=== PATIENT | male | born 1950 | race Two or more races ===

== ENCOUNTER 2020-02-24 15:10 | Inpatient (IN) | payer OTHER, MEDICARE ==
[~2020-02-24] VITALS: Ht 177.8 cm; Wt 104.7 kg
[2020-02-24 00:55] VITALS: BP 125/72
[2020-02-24] MEDS ORDERED: SODIUM CHLORIDE 0.9% 1,000 ML IVB ONE (15:30)
[2020-02-24] MEDS ORDERED: ASPirin 81 mg TAB PO ONE ×2 (15:30)
[2020-02-24] MEDS ORDERED: fentaNYL CITRATE 100 MCG/2 ML VL IV ONE (15:30)
[2020-02-24] MEDS ORDERED: SODIUM CHL 0.9% IV ONE (15:45)
[2020-02-24] MEDS ORDERED: PROCAINAMIDE IV ONE (15:45)
[2020-02-24 15:58] LABS: Basophils # (auto) 0.1 10 ^3/uL (0-0.2); Eosinophils # (auto) 0.3 10 ^3/uL (0-0.8); Eosinophils % (auto) 2.2 % (0.0-7.0); Neutrophils # (auto) 9.4 10 ^3/uL (1.6-8.6); White Blood Cell 14.1 10^3/uL (4.4-10.8)
[2020-02-24] MEDS ORDERED: AMIODARONE HCL (50 MG/ ML) 3 ML VIAL IV ONE (15:58)
[2020-02-24 16:00] LABS: Hemoglobin 17.8 g/dL (13.5-17.5); Lymphocytes # (auto) 2.7 10 ^3/uL (0.4-5.4); Lymphocytes % (auto) 19.2 % (10.0-50.0); Mean Corpuscular Hemoglobin 32.5 pg (28.0-32.0); Mean Corpuscular Hgb Conc. 34.2 g/dL (32.0-36.0); Mean Corpuscular Volume 95.1 fL (80.0-100.0); Monocytes # (auto) 1.5 10 ^3/uL (0-1.3); Monocytes % (auto) 10.9 % (0.0-12.0); Neutrophils % (auto) 66.7 % (37.0-80.0); Platelet Count (auto) 222 10^3/uL (140-450); Red Blood Cells 5.47 10^6/uL (4.5-5.90); Red Cell Distribution Width 13.8 % (11.8-14.3)
[2020-02-24] MEDS ORDERED: AMIODARONE HCL 150 MG in D5W 5% 100 ML IV ONE (16:00)
[2020-02-24] MEDS ORDERED: MAGNESIUM SULFATE 1GM/100ML 100 ML IV ONE (16:00)
[2020-02-24] MEDS ORDERED: AMIODARONE 450mg/250ml AE 250 ML IV SCH (16:15)
[2020-02-24 16:29] LABS: Albumin 3.7 g/dL (3.4-5.0); Calcium 8.8 mg/dL (8.5-10.1); Magnesium 2.3 mg/dL (1.6-2.6)
[2020-02-24 16:35] LABS: BUN/Creatinine Ratio 10.1; Bilirubin, Total 0.6 mg/dL (0.2-1.0)
[2020-02-24] MEDS ORDERED: HEPARIN SODIUM (PORCINE) 5000 UNITS/ML 1ML VIAL IV ONE (17:15)
[2020-02-24] MEDS ORDERED: ENOXAPARIN SOD 100 MG/1 ML SYRINGE SC ONE (17:15)
[2020-02-24] MEDS ORDERED: NITROGLYCERIN 0.4 MG SL TAB SL PRN ×2 (17:15→19:15)
[2020-02-24] MEDS ORDERED: HEPARIN DRIP/D5W 100UNITS/ML 250 ML IV SCH (17:15)
[2020-02-24] MEDS ORDERED: MORPHINE SULF INJ 2 MG/ML SYRINGE 1ML IV PRN ×3 (17:15→19:15)
[2020-02-24] MEDS ORDERED: LACTATED RINGER'S 1,000 ML IV ONE (18:00)
[2020-02-24 18:13] LABS: Cholesterol 173 mg/dL (< 200); HDL Cholesterol 41 mg/dL (40-59); LDL Cholesterol 104 mg/dL (< 100); Triglycerides 165 mg/dL (< 150)
[2020-02-24] MEDS: SODIUM CHLORIDE 0.9% 1,000 ML IV SCH (18:24)
[2020-02-24] MEDS ORDERED: METOPROLOL SUCCINATE XL 50 MG TAB PO ONE (19:00)
[2020-02-24] MEDS ORDERED: ATORVASTATIN 20 MG TAB PO ONE (19:00)
[2020-02-24] MEDS ORDERED: ALUM & MAG HYDROX-SIMETH LIQ(MAALOX) 30 ML PO PRN (19:15)
[2020-02-24] MEDS ORDERED: ACETAMINOPHEN 325 MG TAB PO PRN (19:15)
[2020-02-24] MEDS ORDERED: DOCUSATE SOD 100 MG CAP PO PRN (19:15)
[2020-02-24] MEDS ORDERED: HYDROcodone-ACET 5/325MG TAB PO PRN (19:15)
[2020-02-24] MEDS ORDERED: PNEUMOCOCCAL VACC POLYS 25 MCG/0.5 ML VIAL IM ONE (19:15)
[2020-02-24] MEDS ORDERED: LORazepam 0.5 MG TAB PO PRN (19:15)
[2020-02-24] MEDS ORDERED: cefTRIAXone 1GM/50ML D5W 50 ML IV ONE (19:15)
[2020-02-24] MEDS ORDERED: ONDANSETRON HCL 4 MG/2 ML VIAL IV PRN (19:15)
[2020-02-24] MEDS ORDERED: INFLUENZA QUAD 2020-2021 0.5 ML SYRG IM ONE (19:15)
[2020-02-24 19:51] LABS: INR 0.99 (0.9-1.15); Partial Thromboplastin Time 25.5 sec (23.0-31.2)
[2020-02-24 19:53] LABS: Free T4 (Free Thyroxine) 0.96 ng/dL (0.89-1.76)
[2020-02-24 19:54] LABS: Free T3 3.27 pg/mL (2.3-4.2); T3 Total 0.9 ng/mL (0.60-1.81)
[2020-02-24] MEDS ORDERED: CLINDAMYCIN 600MG IV 50 ML IV ONE (20:00)
[2020-02-24] MEDS: MECLIZINE HCL 25 MG TAB PO SCH (20:42)
[2020-02-24] MEDS: ATORVASTATIN 20 MG TAB PO SCH (20:45)
[2020-02-24] MEDS: AMIODARONE 450mg/250ml AE 250 ML IV SCH (21:37)
[2020-02-24] MEDS ORDERED: BUDESONIDE (INHALATION) 0.5 MG/2 ML NEB NEB SCH (22:00)
[2020-02-24] MEDS ORDERED: ALBUTEROL SULF HFA 90MCG INH 200DOSE IN SCH (22:00)
--- NOTE | 2020-02-24 22:10 | NUR ---
Respiratory note: PT ASSESSED AT THIS TIME. HR 55, RR 22, SPO2 99% ON 4L NC. NO S/S OF ANY RESPIRATORY DISTRESS NOTED. MDI TXS HELD AT THIS TIME PER PHARMACY PROTOCOL, AWAITING IN HOUSE COVID-19 RESULTS.
[2020-02-24] MEDS: ENOXAPARIN SOD 100 MG/1 ML SYRINGE SC SCH (22:12)
[2020-02-25] VITALS (10 sets, daily range): BP systolic 115–149; BP diastolic 60–82
--- NOTE | 2020-02-25 00:55 | NUR ---
Initial admit notes charted by mistake for 02/24/20 at 0055. Pt arrived to this unit at 0055 on 02/25/20
[2020-02-25] MEDS: MECLIZINE HCL 25 MG TAB PO SCH ×3 (05:25→21:33)
[2020-02-25] MEDS: CLINDAMYCIN 600MG IV 50 ML IV SCH ×3 (05:25→23:24)
[2020-02-25] MEDS ORDERED: IOHEXOL 350 MG/ML 100ML IJ ONE ×2 (07:34→10:58)
[2020-02-25] MEDS ORDERED: LIDOCAINE 2%HCL (LOCAL ANESTH.) INJ 20ML MDV ONE ×2 (07:34→10:55)
[2020-02-25 07:49] LABS: INR 1.07 (0.9-1.15); Partial Thromboplastin Time 30.4 sec (23.0-31.2)
[2020-02-25 07:51] LABS: BUN/Creatinine Ratio 14.9; Calcium 7.5 mg/dL (8.5-10.1); Potassium 3.9 mmol/L (3.5-5.1)
[2020-02-25 07:52] LABS: Basophils # (auto) 0.1 10 ^3/uL (0-0.2); Basophils % (auto) 0.6 % (0.0-2.0); Eosinophils # (auto) 0.2 10 ^3/uL (0-0.8); Eosinophils % (auto) 1.6 % (0.0-7.0); Hematocrit 45.4 % (41.0-53.0); Hemoglobin 15.2 g/dL (13.5-17.5); Lymphocytes # (auto) 1.4 10 ^3/uL (0.4-5.4); Lymphocytes % (auto) 12.9 % (10.0-50.0); Mean Corpuscular Hemoglobin 31.8 pg (28.0-32.0); Mean Corpuscular Hgb Conc. 33.4 g/dL (32.0-36.0); Mean Corpuscular Volume 95.4 fL (80.0-100.0); Monocytes # (auto) 1.3 10 ^3/uL (0-1.3); Monocytes % (auto) 11.5 % (0.0-12.0); Neutrophils % (auto) 73.4 % (37.0-80.0); Nucleated Red Blood Cells % 0.2 %; Platelet Count (auto) 194 10^3/uL (140-450); Red Blood Cells 4.76 10^6/uL (4.5-5.90); Red Cell Distribution Width 14.1 % (11.8-14.3); White Blood Cell 10.9 10^3/uL (4.4-10.8)
[2020-02-25] MEDS: BUDESONIDE (INHALATION) 0.5 MG/2 ML NEB NEB SCH ×2 (10:00→18:52)
[2020-02-25] MEDS ORDERED: ENOXAPARIN SOD 100 MG/1 ML SYRINGE SC SCH (10:00)
[2020-02-25] MEDS ORDERED: ALBUTEROL SULF HFA 90MCG INH 200DOSE IN PRN (10:00)
[2020-02-25] MEDS ORDERED: PATIENTS OWN MEDICATION (PULMICORT 360 MCG) INH SCH (10:00)
[2020-02-25] MEDS ORDERED: HEPARIN SODIUM (PORCINE) 5000 UNITS/ML 1ML VIAL ONE (10:54)
[2020-02-25] MEDS ORDERED: VERAPAMIL 2.5MG/ML INJ 2ML VIAL IV ONE (10:54)
[2020-02-25] MEDS ORDERED: ANGIOMAX 250 MG VIAL IV ONE (10:54)
[2020-02-25] MEDS ORDERED: fentaNYL CITRATE 100 MCG/2 ML VL ONE (10:55)
[2020-02-25] MEDS ORDERED: MIDAZOLAM HCL 1MG/1ML-2 ML VIAL ONE (10:55)
[2020-02-25] MEDS ORDERED: SODIUM CHL 0.9% 0 ML ONE (10:55)
--- NOTE | 2020-02-25 11:50 | NUR ---
Patient brought to recovery via bed report received from ANTONELLA Ibrahim and ANTONELLA Laguerre. Patient is AO x 4, denies pain at this time. NAD noted. Left radial site is benign no s/s of bleeding or hematoma formation. Vasc Band is in place. Positive circulation, movement and sensation noted to BUE. Patient educated on post-procedure care instructions, verbalized understanding.
--- NOTE | 2020-02-25 12:05 | NUR ---
Patient awake in bed watching television, NAD noted. Respirations are even and unlabored. Left radial site remains unchanged.
[2020-02-25] MEDS: ASPirin 81 mg TAB PO SCH (12:20)
[2020-02-25] MEDS: ENOXAPARIN SOD 100 MG/1 ML SYRINGE SC SCH ×2 (12:20→21:33)
--- NOTE | 2020-02-25 12:25 | NUR ---
Report given to primary RN, Xavier.
--- NOTE | 2020-02-25 12:38 | NUR ---
Patient taken to telemetry unit via bed by this RN and hospital Mable sanabria. strip stamp straightener in place, patient stable for transport. NAD noted upon departure. ANTONELLA Levy present at bedside to receive patient, report and witness left radial site benign no s/s of bleeding or hematoma formation. Bed set in lowest locked position with side rails up x 2, call light is within reach and bed alarm set on for safety. Care endorsed to ANTONELLA Levy.
--- NOTE | 2020-02-25 12:53 | NUR ---
Left message for case management to arrange transportation for [facility] Diallo to transport patient Neelima Cadet. No case consultant available but left voice message.
--- NOTE | 2020-02-25 15:45 | NUR ---
1430 02/25/20 - Faxed to [facility] transfer center at [phone] face sheet, order for transfer to [facility] higher level of care, patient with 3 vessel coronary artery disease and syncope, H/P, labs, meds, imaging, transfer summary. Pending review and bed availability. Contacted [facility] at [phone] patient on "will call" also faxed [facility] Medical Necessity Statement to [phone].
[2020-02-25] MEDS: ALBUTEROL SULF 2.5 MG/0.5ML(0.5%) NEB SOLN NEB PRN (18:52)
--- NOTE | 2020-02-25 18:54 | NUR ---
Neelima Cadet spring encaser called and explained that Dr Bolden had accepted patient and will transfer pending paper work that needs to be filled by spring encaser and insurance purposes.
--- NOTE | 2020-02-25 18:56 | NUR ---
Patient surgical site to right radius intact, no pain and no blood oozing. Vital signs stable and has no complaints of pain. Remains on Amiodarone drip and Iv fluids.
--- NOTE | 2020-02-25 19:40 | NUR ---
Opening Shift Note Assumed care of patient, awake and alert. No S/S of distress/SOB or pain. Updated on POC and to call for assist PRN, patient verbalized understanding. Bed in lowest and locked position, call light within reach, will continue to monitor for changes Q1hr and PRN.
[2020-02-25] MEDS ORDERED: cefTRIAXone 1GM/50ML D5W 50 ML IV SCH (21:00)
[2020-02-25] MEDS: ATORVASTATIN 20 MG TAB PO SCH (21:33)
[2020-02-25] MEDS: AMIODARONE 450mg/250ml AE 250 ML IV SCH (21:44)
[2020-02-26] MEDS: SODIUM CHLORIDE 0.9% 1,000 ML IV SCH ×2 (02:35→22:59)
[2020-02-26] MEDS: AMIODARONE 450mg/250ml AE 250 ML IV SCH (04:15)
[2020-02-26 05:07] VITALS: BP 142/73
[2020-02-26] MEDS: MECLIZINE HCL 25 MG TAB PO SCH ×3 (06:45→22:59)
[2020-02-26] MEDS: CLINDAMYCIN 600MG IV 50 ML IV SCH (06:45)
[2020-02-26 09:00] VITALS: BP 136/70
--- NOTE | 2020-02-26 09:40 | NUR ---
Amiodarone drip discontinued by cardiology pending patient's transfer to [place]. Patient resting in bed and remains in Sinus rhythm.
[2020-02-26] MEDS: BUDESONIDE (INHALATION) 0.5 MG/2 ML NEB NEB SCH ×2 (10:00→20:02)
[2020-02-26] MEDS: CHOLECALCIFEROL (VITD3) 2,000 UNIT CAP PO SCH ×2 (11:27→11:30)
[2020-02-26] MEDS: ASPirin 81 mg TAB PO SCH (11:27)
[2020-02-26] MEDS: AMIODARONE HCL 200 MG TAB PO SCH ×2 (11:28→23:28)
[2020-02-26] MEDS: ENOXAPARIN SOD 100 MG/1 ML SYRINGE SC SCH ×2 (11:28→23:29)
--- NOTE | 2020-02-26 12:42 | NUR ---
1205 02/26/20 - Faxed to [facility] transfer center at [phone], face sheet and [facility] Return Agreement. Contacted [facility] transfer center at [phone] and spoke with intake coordinated who confirmed receiving the faxed documents. She stated transfer center nurse would contact me with update on bed status.
[2020-02-26 13:00] VITALS: BP 159/76
--- NOTE | 2020-02-26 14:50 | NUR ---
[id number] Contacted by Nurse FB and cardiology practitioner both stated patient has declined transfer to [facility] and has been scheduled for angioplasty on tomorrow (02/27/20). I also contacted [facility] at [phone] to cancel "will call" for transportation, spoke with Razia.
[2020-02-26 16:52] VITALS: BP 140/82
--- NOTE | 2020-02-26 18:49 | NUR ---
Patient denies pain, remains in sinus rhythm, no shortness of breath and no coughing. Safety measures in place.
--- NOTE | 2020-02-26 19:45 | NUR ---
OPENING SHIFT NOTE PT IS RESTING IN BED WITH EYES OPEN AND RESP RATE IS EVEN AND UNLABORED. NO S/S OF ANY DISTRESS NOTED AT THIS TIME. LEFT WRIST CATH SITE IS CDI WITH NO REDNESS OR SWELLING. POC DISCUSSED WITH PT AND PT VERBALIZES UNDERSTANDING. BED IS LOW, WHEELS ARE LOCKED, AND CALL LIGHT IS WITH IN REACH.
[2020-02-26] MEDS: ALBUTEROL SULF 2.5 MG/0.5ML(0.5%) NEB SOLN NEB PRN (20:07)
[2020-02-26 22:00] VITALS: BP 139/61
[2020-02-26] MEDS: ATORVASTATIN 20 MG TAB PO SCH (23:29)
[2020-02-27] VITALS (12 sets, daily range): BP systolic 127–168; BP diastolic 70–86
[2020-02-27] MEDS: MECLIZINE HCL 25 MG TAB PO SCH ×3 (05:53→23:00)
[2020-02-27 07:13] LABS: Basophils # (auto) 0.1 10 ^3/uL (0-0.2); Basophils % (auto) 0.9 % (0.0-2.0); Eosinophils # (auto) 0.2 10 ^3/uL (0-0.8); Eosinophils % (auto) 2.5 % (0.0-7.0); Hematocrit 46.8 % (41.0-53.0); Lymphocytes # (auto) 1.3 10 ^3/uL (0.4-5.4); Lymphocytes % (auto) 16.8 % (10.0-50.0); Mean Corpuscular Hemoglobin 32.2 pg (28.0-32.0); Mean Corpuscular Hgb Conc. 34.2 g/dL (32.0-36.0); Mean Corpuscular Volume 94.3 fL (80.0-100.0); Monocytes # (auto) 1.1 10 ^3/uL (0-1.3); Monocytes % (auto) 14.3 % (0.0-12.0); Neutrophils % (auto) 65.5 % (37.0-80.0); Nucleated Red Blood Cells % 0.1 %; Platelet Count (auto) 176 10^3/uL (140-450); Red Blood Cells 4.96 10^6/uL (4.5-5.90); Red Cell Distribution Width 13.5 % (11.8-14.3); White Blood Cell 7.7 10^3/uL (4.4-10.8)
[2020-02-27 07:31] LABS: Potassium 4.1 mmol/L (3.5-5.1)
[2020-02-27 07:36] LABS: INR 1.05 (0.9-1.15)
[2020-02-27 07:48] LABS: BUN/Creatinine Ratio 13.7; Calcium 8.6 mg/dL (8.5-10.1)
--- NOTE | 2020-02-27 08:06 | NUR ---
Patient stable denies chest pain, systolic bp elevated but has no further complaints. Patient taken to [facility] for procedure.
[2020-02-27] MEDS ORDERED: LIDOCAINE 2%HCL (LOCAL ANESTH.) INJ 20ML MDV ONE (08:17)
[2020-02-27] MEDS ORDERED: IODIXANOL 320MG/ML 100ML BTL IV ONE (08:17)
[2020-02-27] MEDS ORDERED: ANGIOMAX 250 MG VIAL IV ONE ×2 (09:13→10:24)
[2020-02-27] MEDS ORDERED: fentaNYL CITRATE 100 MCG/2 ML VL ONE (09:13)
[2020-02-27] MEDS ORDERED: SODIUM CHL 0.9% 50 ML ONE ×2 (09:14→10:24)
[2020-02-27] MEDS ORDERED: MIDAZOLAM HCL 1MG/1ML-2 ML VIAL ONE (09:14)
[2020-02-27] MEDS ORDERED: TICAGRELOR 90 MG TAB ONE (09:58)
[2020-02-27] MEDS ORDERED: ASPirin 81 mg TAB ONE (09:58)
[2020-02-27] MEDS: ASPirin 81 mg TAB PO SCH (10:00)
[2020-02-27] MEDS: BUDESONIDE (INHALATION) 0.5 MG/2 ML NEB NEB SCH ×2 (10:11→22:43)
--- NOTE | 2020-02-27 10:11 | NUR ---
Respiratory note: MED NEB NON-ADMINISTERED DUE TO PT OFF UNIT. RN AWARE TO HAVE RT PAGED IF NEEDED.
--- NOTE | 2020-02-27 12:22 | NUR ---
Patient arrived to unit post status angioplasty. Right groin area surgical site intact, soft, no bleeding noted. Vitals stable, denies pain and remains flat in bed. Patient educated on importance of staying flat until when instructed to do so. Patient verbalized understanding and has no further needs.
--- NOTE | 2020-02-27 14:33 | NUR ---
Patient's right groin area remains intact, soft and no bleeding. Up to bathroom and tolerated procedure. To continue to monitor site and vitals signs stable with exception of elevated blood pressure.
[2020-02-27] MEDS: AMIODARONE HCL 200 MG TAB PO SCH ×2 (16:18→23:01)
[2020-02-27] MEDS: CHOLECALCIFEROL (VITD3) 2,000 UNIT CAP PO SCH (16:19)
[2020-02-27] MEDS: SODIUM CHLORIDE 0.9% 1,000 ML IV SCH (16:19)
--- NOTE | 2020-02-27 19:25 | NUR ---
Opening shift note Assumed care of patient from day shift RN. Patient A&Ox4, respirations even and non-labored with no s/s of distress at this time. Right groin access dressing CDI. Patient c/o pain from the LFA IV, noted redness, swelling, and removed the IV, catheter intact, applied dressing, patient tolerated well. Discussed POC with patient who verbalized understanding, safetyp precautions in place, bed in lowest locked position with 2 side rails up, call light within reach. Will continue to monitor Q1hr and PRN.
[2020-02-27] MEDS: ALBUTEROL SULF 2.5 MG/0.5ML(0.5%) NEB SOLN NEB PRN (22:43)
[2020-02-27] MEDS: TICAGRELOR 90 MG TAB PO SCH (23:00)
[2020-02-27] MEDS: ATORVASTATIN 20 MG TAB PO SCH (23:01)
[2020-02-28] MEDS: SODIUM CHLORIDE 0.9% 1,000 ML IV SCH (04:35)
[2020-02-28 05:44] VITALS: BP 140/73
[2020-02-28] MEDS: MECLIZINE HCL 25 MG TAB PO SCH ×2 (06:08→14:53)
[2020-02-28 09:00] VITALS: BP 139/73
--- NOTE | 2020-02-28 09:02 | NUR ---
Opening Shift Note: Assumed care of patient, awake and alert. No S/S of distress/SOB or pain. Bed in lowest locked position, side rails up x 2, call light within reach. Patient instructed on POC and to call for assist PRN, will continue to monitor for changes Q1hr and PRN. Addendum: 02/28/20 at 0902 by NADINE BLACK RN RN correct time- [id number]
[2020-02-28] MEDS: TICAGRELOR 90 MG TAB PO SCH (09:20)
[2020-02-28] MEDS: AMIODARONE HCL 200 MG TAB PO SCH (09:20)
[2020-02-28] MEDS: CHOLECALCIFEROL (VITD3) 2,000 UNIT CAP PO SCH (09:21)
[2020-02-28] MEDS ORDERED: ASPirin-EC 81 mg tab PO SCH (10:00)
--- NOTE | 2020-02-28 11:52 | NUR ---
Nutrition Assessment Est energy needs [id number] kcal (14-18 kcal/kg BW 104.7kg) est protein needs 75-98g (1-1.2g/kg IBW 75kg) Will monitor and reassess prn. Addendum: 02/28/20 at [address] Amended: Links added.
[2020-02-28 12:15] LABS: Basophils # (auto) 0.1 10 ^3/uL (0-0.2); Basophils % (auto) 0.7 % (0.0-2.0); Eosinophils # (auto) 0.1 10 ^3/uL (0-0.8); Eosinophils % (auto) 1.4 % (0.0-7.0); Hematocrit 46.1 % (41.0-53.0); Hemoglobin 16.1 g/dL (13.5-17.5); Lymphocytes % (auto) 9.5 % (10.0-50.0); Mean Corpuscular Hemoglobin 32.9 pg (28.0-32.0); Mean Corpuscular Hgb Conc. 34.9 g/dL (32.0-36.0); Mean Corpuscular Volume 94.5 fL (80.0-100.0); Monocytes # (auto) 0.9 10 ^3/uL (0-1.3); Monocytes % (auto) 8.9 % (0.0-12.0); Neutrophils # (auto) 8.3 10 ^3/uL (1.6-8.6); Neutrophils % (auto) 79.5 % (37.0-80.0); Nucleated Red Blood Cells % 0.1 %; Platelet Count (auto) 181 10^3/uL (140-450); Red Blood Cells 4.88 10^6/uL (4.5-5.90); Red Cell Distribution Width 13.6 % (11.8-14.3); White Blood Cell 10.4 10^3/uL (4.4-10.8)
[2020-02-28 12:35] VITALS: BP 132/68
[2020-02-28 12:42] LABS: Albumin 3.3 g/dL (3.4-5.0); Calcium 8.6 mg/dL (8.5-10.1); Potassium 3.8 mmol/L (3.5-5.1)
[2020-02-28 12:46] LABS: BUN/Creatinine Ratio 13.3; Bilirubin, Total 1.3 mg/dL (0.2-1.0); Total Protein 6.9 g/dL (6.4-8.2)
[2020-02-28 14:18] VITALS: BP 115/61
--- NOTE | 2020-02-28 14:30 | NUR ---
UNABLE TO FAX INFORMATION TO PATIENT PCP, [employer]. SPOKE WITH CHARGE NURSE LINUS REGARDING THIS ISSUE. PATIENT PRESCRIPTIONS FILLED BY [facility] AND GIVEN TO PATIENT PRIOR TO DISCHARGE.
--- NOTE | 2020-02-28 14:58 | NUR ---
Discharge instructions given as ordered. Encourage to follow up with PMD as instructed. All questions and concerns addressed. Patient verbalized understanding. Medication reconciliation form completed and copy given to patient. IV removed with catheter intact, pressure dressing applied. Telemetry unit returned to ICU. [facility], accompanied by staff. No distress noted at time of departure.
--- NOTE | 2020-02-28 16:31 | NUR ---
PATIENT INFORMATION REGARDING STENTS LEFT BY PATIENT. ATTEMPTED TO CONTACT PATIENT, MESSAGE AND CALL BACK NUMBER LEFT FOR PATIENT.
== END 2020-02-28 15:01 | disposition home or self-care (01) | DRG 246 ==
LOC: ER 15:10 → TELE 17:03 → TELE-WESTW 23:25
PROVIDERS: ADMIT Hospitalist; ATTEND Internal Medicine
PROC: 4A023N7 Measurement of Cardiac Sampling and Pressure, Left Heart, Percutaneous Approach (ICD-10-PCS; 2020-02-25)
PROC: B2111ZZ Fluoroscopy of Multiple Coronary Arteries using Low Osmolar Contrast (ICD-10-PCS; 2020-02-25)
PROC: B2151ZZ Fluoroscopy of Left Heart using Low Osmolar Contrast (ICD-10-PCS; 2020-02-25)
PROC: 4A033BC Measurement of Arterial Pressure, Coronary, Percutaneous Approach (ICD-10-PCS; 2020-02-25)
PROC: 027137Z Dilation of Coronary Artery, Two Arteries with Four or More Drug-eluting Intraluminal Devices, Percutaneous Approach (ICD-10-PCS; principal; 2020-02-27)
PROC: B241ZZ3 Ultrasonography of Multiple Coronary Arteries, Intravascular (ICD-10-PCS; 2020-02-27)
DX: I21.4 Non-ST elevation (NSTEMI) myocardial infarction (principal); I47.2 Ventricular tachycardia; N17.9 Acute kidney failure, unspecified; E66.9 Obesity, unspecified; E78.5 Hyperlipidemia, unspecified; N18.9 Chronic kidney disease, unspecified; I25.10 Atherosclerotic heart disease of native coronary artery without angina pectoris; D75.1 Secondary polycythemia; J44.9 Chronic obstructive pulmonary disease, unspecified; F17.210 Nicotine dependence, cigarettes, uncomplicated; Z20.828 Contact with and (suspected) exposure to other viral communicable diseases; E02 Subclinical iodine-deficiency hypothyroidism; E78.00 Pure hypercholesterolemia, unspecified; D72.829 Elevated white blood cell count, unspecified; R74.01 Elevation of levels of liver transaminase levels; Z86.73 Personal history of transient ischemic attack (TIA), and cerebral infarction without residual deficits; Z86.718 Personal history of other venous thrombosis and embolism; Z71.6 Tobacco abuse counseling; Z79.899 Other long term (current) drug therapy; Z80.1 Family history of malignant neoplasm of trachea, bronchus and lung; Z81.1 Family history of alcohol abuse and dependence; Z68.33 Body mass index [BMI] 33.0-33.9, adult; Z28.21 Immunization not carried out because of patient refusal
CPT/HCPCS: 36415; 70450; 71045; 80048; 80053; 80061; 82565; 83036; 83735; 83880; 84439; 84443; 84480; 84481; 84484; 85025; 85610; 85730; 87040; 87426; 92928; 92978; 92979; 93005; 93306; 93458; 93571; 94640; 97163; 99152; 99153; 99291; C1874; C1887; G0378; J0696; J2250; J3490; J7060; Q9967

== ENCOUNTER 2020-09-04 02:15 | Emergency (ER) | payer OTHER, MEDICARE ==
[~2020-09-04] VITALS: Ht 177.8 cm; Wt 81.6 kg
[2020-09-04] MEDS ORDERED: SODIUM CHLORIDE 0.9% 1,000 ML IV ONE (03:00)
[2020-09-04] MEDS ORDERED: dilTIAZem 25 MG/5 ML VIAL IV ONE (03:00)
[2020-09-04] MEDS ORDERED: KETAMINE 50mg/ML 10ml Vial (500mg/10ml) IV ONE (04:00)
[2020-09-04] MEDS ORDERED: MIDAZOLAM HCL 1MG/1ML-2 ML VIAL IV ONE (04:00)
[2020-09-04 04:51] LABS: Hematocrit 23.4 % (41.0-53.0); Hemoglobin 8.1 g/dL (13.5-17.5); Mean Corpuscular Hemoglobin 29.8 pg (28.0-32.0); Mean Corpuscular Hgb Conc. 34.8 g/dL (32.0-36.0); Mean Corpuscular Volume 85.6 fL (80.0-100.0); Platelet Count (auto) 277 10^3/uL (140-450); Red Blood Cells 2.73 10^6/uL (4.5-5.90); Red Cell Distribution Width 18.3 % (11.8-14.3); White Blood Cell 4.2 10^3/uL (4.4-10.8)
[2020-09-04 04:57] LABS: Basophils % (manual) 0 (0.0-2.0); Blast Cells 0; Eosinophils % (manual) 0 (0-7); Promyelocytes % 0; Reactive Lymphocytes 0
[2020-09-04 04:58] LABS: Potassium 4.1 mmol/L (3.5-5.1)
[2020-09-04 05:11] LABS: Albumin 2.1 g/dL (3.4-5.0); BUN/Creatinine Ratio 13.4; Bilirubin, Total 0.6 mg/dL (0.2-1.0); Calcium 7.6 mg/dL (8.5-10.1); Total Protein 5.2 g/dL (6.4-8.2)
[2020-09-04 05:36] LABS: Band Neutrophils % (manual) 18; Lymphocytes % (manual) 13 (10.0-50.0); Metamyelocytes % 4; Monocytes % (manual) 9 (0-12); Myelocytes % 2
[2020-09-04 10:26] LABS: Urine Bacteria FEW /hpf (None Seen); Urine Blood Negative /uL (Negative); Urine Hyaline Cast FEW /lpf (0 - 2); Urine Mucus FEW (None Seen); Urine Specific Gravity 1.028 (1.001-1.035); Urine WBC 2 /hpf (0 - 3)
[2020-09-04 10:32] VITALS: BP 105/58
== END 2020-09-04 11:32 | disposition home or self-care (01) ==
LOC: ER 02:15 → EDBD 02:15 → ER 11:27
DX: I47.1 Supraventricular tachycardia (principal); I25.10 Atherosclerotic heart disease of native coronary artery without angina pectoris; E43 Unspecified severe protein-calorie malnutrition; D63.8 Anemia in other chronic diseases classified elsewhere; J44.9 Chronic obstructive pulmonary disease, unspecified; I25.2 Old myocardial infarction; F17.210 Nicotine dependence, cigarettes, uncomplicated; I45.10 Unspecified right bundle-branch block; Z98.61 Coronary angioplasty status; Z85.528 Personal history of other malignant neoplasm of kidney; Z85.72 Personal history of non-Hodgkin lymphomas; Z68.25 Body mass index [BMI] 25.0-25.9, adult; Z98.890 Other specified postprocedural states
CPT/HCPCS: 36415; 71045; 80053; 81001; 83605; 83880; 84484; 85007; 85027; 93005; 96361; 96374; 96375; 99285; J2250